=== PATIENT | female | born 1950 ===

== ENCOUNTER 2017-03-17 08:32 | Emergency (ER) | payer BC, MEDICARE, OTHER ==
[2017-03-17 09:33] VITALS: BP 139/81; PULSE 65; RESP 18; TEMP 98; O2SAT 98; BMI 30.4
--- NOTE | 2017-03-17 10:39 | C.PDOC ---
History Of Present Illness 66 y/o female presents to ED for evaluation of intermittent lump on the left side of her neck for the past year. Pt states that she felt the lump last night after receiving an email which made her nervous and anxious. Pt reports recently being evaluated by her PMD who prescribed her Ativan to take as needed , but pt states she doesn't take the medication. Pt states that she doesn't feel the lump currently. Otherwise, denies any discharge, fever, pain, or any other associated symptoms at this time. Time Seen by Provider: 03/17/17 09:24 Chief Complaint (Nursing): Upper Extremity Problem/Injury History Per: Patient History/Exam Limitations: no limitations Onset/Duration Of Symptoms: Days Current Symptoms Are (Timing): Still Present Severity: None Pain Scale Rating Of: 0 Exacerbating Factor(s): Nothing Recent travel outside of the [place]: No Additional History Per: Patient Past Medical History Reviewed: Historical Data, Nursing Documentation, Vital Signs Vital Signs: Last Vital Signs Temp 98.0 F 03/17/17 09:04 Pulse 65 03/17/17 09:04 Resp 18 03/17/17 09:04 BP 139/81 03/17/17 09:04 Pulse Ox 98 03/17/17 10:43 - Medical History PMH: Depression Family History: States: Unknown Family Hx - Social History Hx Alcohol Use: No Hx Substance Use: No - Immunization History Hx Tetanus Toxoid Vaccination: No Hx Influenza Vaccination: Yes Hx Pneumococcal Vaccination: Yes Review Of Systems Except As Marked, All Systems Reviewed And Found Negative. Constitutional: Negative for: Fever, Chills Cardiovascular: Negative for: Chest Pain, Palpitations Respiratory: Negative for: Shortness of Breath Musculoskeletal: Negative for: Neck Pain Skin: Positive for: Other (lump to left side of neck). Negative for: Rash Physical Exam - Physical Exam Appears: Non-toxic, No Acute Distress Skin: Normal Color, Warm, Dry, No Rash, Other (no mass on the left side of neck) Head: Atraumatic, Normacephalic Eye(s): bilateral: Normal Inspection Neck: Normal, Normal ROM, No Paracervical Tenderness, Supple Cardiovascular: Rhythm Regular, No Murmur Respiratory: Normal Breath Sounds, No Rales, No Rhonchi, No Wheezing Neurological/Psych: Oriented x3, Normal Speech, Normal Cognition ED Course And Treatment O2 Sat by Pulse Oximetry: 98 (on RA) Pulse Ox Interpretation: Normal Disposition - Disposition Referrals: [facility] Laura Rena, [Non-Staff] - Disposition: HOME/ ROUTINE Disposition Time: 09:45 Condition: GOOD Additional Instructions: Thank you for letting us take care of you today. Your provider was Dr. Jimenez. You were treated for a medical evaluation. The emergency medical care you received today was directed at your acute symptoms. If you were prescribed any medication, please fill it and take as directed. It may take several days for your symptoms to resolve. Return to the Emergency Department if your symptoms worsen, do not improve, or if you have any other problems. Please contact your doctor or call one of the physicians/clinics you have been referred to that are listed on the Patient Visit Information form that is included in your discharge packet. Bring any paperwork you were given at discharge with you along with any medications you are taking to your follow up visit. Our treatment cannot replace ongoing medical care by a primary care provider (PCP) outside of the emergency department. Thank you for allowing the [facility] team to be part of your care today. Follow up with your primary doctor in 2-3 days for re-evaluation and further management. Forms: [employer] ([employer]) - Clinical Impression Clinical Impression: Well adult - Scribe Statement The provider has reviewed the documentation as recorded by the Scribe Shari Bolanos All medical record entries made by the Scribe were at my direction and personally dictated by me. I have reviewed the chart and agree that the record accurately reflects my personal performance of the history, physical exam, medical decision making, and the department course for this patient. I have also personally directed, reviewed, and agree with the discharge instructions and disposition.
== END 2017-03-17 09:50 | disposition home or self-care (01) ==
LOC: C.ER 08:32
DX: Z00.00 Encounter for general adult medical examination without abnormal findings (principal)